=== PATIENT | female | born 1995 | race Caucasian/White ===

== ENCOUNTER → 2017-11-05 | Outpatient (CLI) | payer OTHER ==
[~2017-11-05] MED LIST: ACET325 PO; AZIT250 PO; BENZ100A PO; BIRTH CONTROL; CEFT18SU PO; CEPH500 PO; CIPR250 PO; CIPR500 PO; CLIN300 PO; CODACEE120 PO; Cleocin HCl150 MG PO; Crutch1 EACH MISC; Diflucan100 MG PO; ERYT.5TO LEFTEYE; HYDMOR2 PO; IBUP800 PO; METPRE4DP PO; MULVITMINE PO; NITR100CA PO; NYST100SU SS; Naprosyn500 MG PO; Norco 5-325 Ta1 EACH PO; PHENA200 PO; Percocet 5-3251 EACH PO; RXALBOI INH; RXOXYACE PO; Ultram50 MG PO; Verotin-Gr Cap1 EACH PO; Zofran Odt8 MG SL
== END | disposition home or self-care (01) ==
LOC: LAB EV 15:43
DX: L72.3 Sebaceous cyst (principal)
CPT/HCPCS: 87070; 87075; 87076; 87205

== ENCOUNTER → 2017-11-24 | Outpatient (CLI) | payer OTHER ==
[2017-11-25 14:39] LABS: Source VAG/CERVIX
== END | disposition home or self-care (01) ==
LOC: LAB 13:56
PROVIDERS: Obstetrics & Gynecology
DX: Z36.89 Encounter for other specified antenatal screening (principal)
CPT/HCPCS: 87491; 87591; G0123

== ENCOUNTER 2018-01-07 18:37 | Emergency (ER) | payer OTHER ==
[~2018-01-07] VITALS: Ht 160 cm; Wt 62.6 kg
[~2018-01-07 18:37] MED LIST changes: -ACET325 PO; -Verotin-Gr Cap1 EACH PO; -Zofran Odt8 MG SL
[2018-01-07] MEDS ORDERED: Verotin-Gr Cap1 EACH PO (18:53)
[2018-01-07 20:40] LABS: Source, Urine Voided
[2018-01-07 20:44] LABS: Appearance, Urine Clear (Clear); Bilirubin, Urine Neg (Neg); Blood, Urine Neg (Neg); Color, Urine Yellow (P-Yellow); Glucose Qualitative, Urine Neg (Neg); Ketones, Urine 3+ (Neg); Leukocyte Esterase, Urine 1+ (Neg); Nitrite, Urine Neg (Neg); Protein, Urine Neg (Neg); Specific Gravity, Urine 1.025 (1.003-1.022); Urobilinogen, Urine NORM (Normal)
[2018-01-07 21:02] LABS: Bacteria Mod /hpf; Red Blood Cells, Urine 0-2 /hpf (0-2); Squamous Epithelial Cells Mod /hpf (Few)
[2018-01-07 21:44] LABS: BASOPHILS ABSOLUTE AUTO 0.04 K/mm3 (0.00-0.23); BASOPHILS PERCENT AUTO 0 % (0-2); EOSINOPHILS ABSOLUTE AUTO 0.11 K/mm3 (0.00-0.68); EOSINOPHILS PERCENT AUTO 1 % (0-6); Hematocrit 40.4 % (33.0-51.0); Hemoglobin 14.4 g/dL (11.5-16.0); IMMATURE GRAN ABSOLUTE AUTO 0.05 K/mm3 (0.00-0.10); IMMATURE GRAN PERCENT AUTO 0 % (0-1); LYMPHOCYTES ABSOLUTE AUTO 2.14 K/mm3 (0.84-5.20); LYMPHOCYTES PERCENT AUTO 17 % (21-46); MONOCYTES ABSOLUTE AUTO 0.55 K/mm3 (0.16-1.47); MONOCYTES PERCENT AUTO 4 % (4-13); Mean Corpuscular HGB 32.7 pg (26.0-34.0); Mean Corpuscular HGB Conc 35.6 g/dL (31.5-36.5); Mean Corpuscular Volume 92 fL (80-100); Mean Platelet Volume 10.7 fL (9.1-12.4); NEUTROPHILS ABSOLUTE AUTO 10.03 K/mm3 (1.96-9.15); NEUTROPHILS PERCENT AUTO 78 % (41-73); Platelet Count 200 K/mm3 (150-400); RDW Coefficient Variation 12.1 % (11.7-14.2); RDW Standard Deviation 40.5 fL (35.1-46.3); Red Blood Cell Count 4.41 M/mm3 (3.80-5.20); White Blood Cell Count 12.92 K/mm3 (4.00-11.30)
[2018-01-07 22:04] LABS: Alanine Aminotransfer (ALT/SGP 14 U/L (12-78); Albumin, Blood 3.2 g/dL (3.4-5.0); Albumin/Globulin Ratio 0.8 (0.8-1.8); Alk Phos 66 U/L (50-136); Anion Gap 4 mmol/L (6-16); Aspartate Aminotrans (AST/SGOT 13 U/L (12-37); Bilirubin, Total 0.2 mg/dL (0.1-1.0); Blood Urea Nitrogen 7 mg/dL (8-24); Bun/Creatinine Ratio 10.6 (12.0-20.0); CO2, Blood 25 mmol/L (21-32); Calcium, Blood 8.8 mg/dL (8.5-10.1); Chloride, Blood 109 mmol/L (98-108); Creatinine, Blood 0.66 mg/dL (0.40-1.00); Globulin, Blood 3.8 g/dL (2.2-4.0); Glomerular Filtration Rate >60 (60-); Glucose, Blood 115 mg/dL (70-99); Potassium, Blood 3.2 mmol/L (3.5-5.5); Sodium, Blood 138 mmol/L (136-145)
== END 2018-01-07 22:52 | disposition home or self-care (01) ==
LOC: ER 18:37
PROVIDERS: Emergency Medicine
DX: O99.89 Other specified diseases and conditions complicating pregnancy, childbirth and the puerperium (principal); R10.32 Left lower quadrant pain; O99.282 Endocrine, nutritional and metabolic diseases complicating pregnancy, second trimester; E87.6 Hypokalemia; O99.342 Other mental disorders complicating pregnancy, second trimester; F31.9 Bipolar disorder, unspecified; Z88.0 Allergy status to penicillin; Z88.2 Allergy status to sulfonamides; F17.210 Nicotine dependence, cigarettes, uncomplicated; Z3A.18 18 weeks gestation of pregnancy
CPT/HCPCS: 36415; 76815; 80053; 81001; 85025; 87086; 99284

== ENCOUNTER → 2018-05-11 | Outpatient (CLI) | payer OTHER ==
[~2018-05-11] MED LIST changes: +Verotin-Gr Cap1 EACH PO
== END | disposition home or self-care (01) ==
LOC: LAB 14:08 → LAB SHORT 14:08
DX: Z34.80 Encounter for supervision of other normal pregnancy, unspecified trimester (principal)
CPT/HCPCS: 87081; 87653

== ENCOUNTER → 2020-01-30 | Outpatient (CLI) | payer OTHER ==
[~2020-01-30] MED LIST changes: +ACET325 PO; +Zofran Odt8 MG SL
== END | disposition home or self-care (01) ==
LOC: LAB EV 13:16 → LAB SHORT 13:16
DX: R07.9 Chest pain, unspecified (principal)
CPT/HCPCS: 85379

== ENCOUNTER → 2020-08-16 | Outpatient (CLI) | payer OTHER | END | disposition home or self-care (01) | LOC: LAB SHORT 14:34 → PLD 14:34 | DX: J02.9 Acute pharyngitis, unspecified (principal) | CPT/HCPCS: 87081 ==

== ENCOUNTER 2020-12-14 21:22 | Emergency (ER) | payer OTHER ==
[~2020-12-14] VITALS: Ht 160 cm; Wt 62.6 kg
== END 2020-12-14 22:51 | disposition home or self-care (01) ==
LOC: ER 21:22
DX: S70.12XA Contusion of left thigh, initial encounter (principal); F17.210 Nicotine dependence, cigarettes, uncomplicated; Z88.6 Allergy status to analgesic agent; Z88.0 Allergy status to penicillin; Z88.2 Allergy status to sulfonamides; Z88.5 Allergy status to narcotic agent; W54.1XXA Struck by dog, initial encounter
CPT/HCPCS: 99283

== ENCOUNTER 2021-03-24 19:48 | Emergency (ER) | payer OTHER ==
[~2021-03-24] VITALS: Ht 157.5 cm; Wt 63.5 kg
[2021-03-24] MEDS ORDERED: LORCET 5-325 M1 EACH PO (23:09)
[2021-03-24] MEDS ORDERED: ONDA4 PO (23:09)
== END 2021-03-24 23:41 | disposition home or self-care (01) ==
LOC: ER 19:48
DX: S50.311A Abrasion of right elbow, initial encounter (principal); S90.812A Abrasion, left foot, initial encounter; M25.531 Pain in right wrist; F17.210 Nicotine dependence, cigarettes, uncomplicated; Z88.0 Allergy status to penicillin; Z88.2 Allergy status to sulfonamides; Z88.5 Allergy status to narcotic agent; W01.198A Fall on same level from slipping, tripping and stumbling with subsequent striking against other object, initial encounter
CPT/HCPCS: 29105; 73080; 73110; 73630; 99283-25; A9270

== ENCOUNTER 2021-11-17 09:44 | Day surgery (SDC) | payer OTHER ==
[~2021-11-17 09:44] MED LIST changes: +LORCET 5-325 M1 EACH PO; +ONDA4 PO
== END 2021-11-17 09:48 | disposition home or self-care (01) ==
LOC: MOI MAM 09:44 → MOI US 09:44 → MOI MAM 11-21 10:15
DX: N63.21 Unspecified lump in the left breast, upper outer quadrant (principal)
CPT/HCPCS: 19083; 77065; A4648

== ENCOUNTER 2022-03-26 22:41 | Emergency (ER) | payer OTHER ==
[~2022-03-26] VITALS: Ht 157.5 cm; Wt 58.5 kg
== END 2022-03-27 00:38 | disposition home or self-care (01) ==
LOC: ER 22:41
DX: R06.02 Shortness of breath (principal); F17.210 Nicotine dependence, cigarettes, uncomplicated; Z88.5 Allergy status to narcotic agent; Z88.2 Allergy status to sulfonamides; Z88.0 Allergy status to penicillin; Z79.899 Other long term (current) drug therapy
CPT/HCPCS: 71101; 99283-25

== ENCOUNTER 2022-12-14 22:39 | Emergency (ER) | payer OTHER ==
[~2022-12-14] VITALS: Ht 157.5 cm; Wt 62.6 kg
[2022-12-14] MEDS ORDERED: IBUP600 PO (23:40)
== END 2022-12-14 23:48 | disposition home or self-care (01) ==
LOC: ER 22:39
DX: R07.89 Other chest pain (principal); F17.210 Nicotine dependence, cigarettes, uncomplicated; Z88.0 Allergy status to penicillin; Z88.2 Allergy status to sulfonamides; Z88.5 Allergy status to narcotic agent
CPT/HCPCS: 36415; 71045; 93005; 93010; J1885

== ENCOUNTER 2025-07-06 19:04 | Emergency (ER) | payer OTHER ==
[~2025-07-06] VITALS: Ht 160 cm; Wt 74.8 kg
[~2025-07-06 19:04] MED LIST changes: +IBUP600 PO
[2025-07-06 19:17] VITALS: BP 142/107
[2025-07-06 19:30] LABS: Source, Urine Clean Catch
[2025-07-06 19:40] LABS: Bilirubin, Urine Neg (Neg); Glucose Qualitative, Urine Neg (Neg); Ketones, Urine Neg (Neg); Leukocyte Esterase, Urine 2+ (Neg); Protein, Urine 1+ (Neg); Specific Gravity, Urine 1.015 (1.003-1.022); Urobilinogen, Urine NORM (Normal)
[2025-07-06 19:46] LABS: Color, Urine Pale Yellow (P-Yellow)
[2025-07-06 19:48] LABS: Red Blood Cells, Urine 0-2 /hpf (0-2)
[2025-07-06] MEDS ORDERED: Cleocin HCl150 MG PO (21:08)
== END 2025-07-06 21:15 | disposition home or self-care (01) ==
LOC: ER 19:04
PROVIDERS: Student in an Organized Health Care Education/Training Program
DX: N39.0 Urinary tract infection, site not specified (principal); Z88.2 Allergy status to sulfonamides; Z88.0 Allergy status to penicillin; Z79.899 Other long term (current) drug therapy; Z59.89 Other problems related to housing and economic circumstances
CPT/HCPCS: 81001; 87081; 87086; 99283; A9270